=== PATIENT | male | born 1995 | race Caucasian/White ===

== ENCOUNTER 2016-10-20 12:19 | Emergency (ER) | payer SELFPAY ==
[2016-10-20] MEDS ORDERED: LIDOCAINE 1% INJ-PF (10 MG/ML) 30 ML SDV INJ ONE (14:00)
[2016-10-20] MEDS ORDERED: LIDOCAINE 4%/TETRACAINE 0.5%/EPI 0.18% 5 ML TOPICAL SOLN TOP ONE (14:00)
--- NOTE | 2016-10-20 14:16 | ER Document Report ---
HPI - HPI Patient complains to provider of: tile cut thumb Onset: Just prior to arrival Onset/Duration: Sudden Pain Level: 5 Context: 21 yo cut right thumb on broken floor tile. Tetanus not current. Associated Symptoms: None Exacerbated by: Denies Relieved by: Denies - ROS ROS below otherwise negative: Yes Systems Reviewed and Negative: Yes All other systems reviewed and negative - DERM Skin Color: Normal Past Medical History - General Information source: Patient - Social History Smoking Status: Current Every Day Smoker Frequency of alcohol use: None Drug Abuse: None Lives with: Spouse/Significant other Family History: Reviewed & Not Pertinent Patient has suicidal ideation: No Patient has homicidal ideation: No - Medical History Medical History: Negative Renal/ Medical History: Denies: Hx Peritoneal Dialysis Surgical Hx: Negative Vertical Provider Document - CONSTITUTIONAL Agree With Documented VS: Yes Exam Limitations: No Limitations General Appearance: No Apparent Distress - INFECTION CONTROL TRAVEL OUTSIDE OF THE [place] IN LAST 30 DAYS: No - HEENT HEENT: Normocephalic - NECK Neck: Supple - RESPIRATORY O2 Sat by Pulse Oximetry: 99 - MUSCULOSKELETAL/EXTREMETIES Musculoskeletal/Extremeties: MAEW, FROM, Tender - 1.5 cm right thumb reynoso aspect base cut - NEURO Level of Consciousness: Awake, Alert Motor/Sensory: No Motor Deficit, No Sensory Deficit - DERM Integumentary: Laceration - see above Course - Vital Signs Vital signs: Temp Pulse Resp BP Pulse Ox 98.3 F 71 16 134/83 H 99 10/20/16 12:57 10/20/16 12:57 10/20/16 12:57 10/20/16 12:57 10/20/16 12:57 Procedures - Laceration/Wound Repair Right Thumb Time completed: 14:47 Wound length (cm): 1.5 Wound's Depth, Shape: Superficial, Linear Laceration pre-procedure: Sterile drapes applied, Other - surgiscrub Anesthetic type: 1% Lidocaine Volume Anesthetic (mLs): 5 Wound explored: Foreign body removed - sliver of tile Wound Repaired With: Sutures Suture Size/Type: 4:0, Prolene Number of Sutures: 3 Layer Closure?: No Post-procedure NV exam normal: Yes Complications: No Discharge - Discharge Clinical Impression: thumb cut repair Condition: Good Disposition: HOME, SELF-CARE Instructions: Soap Cleansing ([facility]), Laceration Care ([facility]), Tetanus Immunization Given ([facility]), Use of Zdfo-Toy-Jgsbfsl Ibuprofen ([facility]) Additional Instructions: keep clean and dry sutures out in 9 days to er any concerns Please complete the patient satisfaction survey if you get one, and return it.. If you do not receive a survey, then you can go to the [facility] website, [email or web address] and place your comments about your very good care. Thank you very much. It was a pleasure being your medical provider today. Forms: Return to Work
[2016-10-20] MEDS ORDERED: DIPH/PERTUSS(ACELL)/TETANUS VAC/PF 0.5 ML SYR (>=10YO) IM ONE (14:45)
[2016-10-20 15:13] VITALS: BP 113/65
== END 2016-10-20 15:10 | disposition home or self-care (01) ==
LOC: ER 12:19
PROC: 0HQFXZZ Repair Right Hand Skin, External Approach (ICD-10-PCS; principal; 2016-10-20)
DX: S61.021A Laceration with foreign body of right thumb without damage to nail, initial encounter (principal); W45.8XXA Other foreign body or object entering through skin, initial encounter; Y93.89 Activity, other specified; F17.200 Nicotine dependence, unspecified, uncomplicated
CPT/HCPCS: 99282; 90715; 12001; J3490

== ENCOUNTER 2017-01-28 03:02 | Emergency (ER) | payer MEDICAID ==
--- NOTE | 2017-01-28 03:50 | RADIOLOGY REPORT (SQ) ---
EXAM DESCRIPTION: FINGER LEFT COMPLETED DATE/TIME: 01/28/2017 3:28 am REASON FOR STUDY: left thumb injury . Hit with sledgehammer. Pain at the interphalangeal joint. COMPARISON: None. NUMBER OF VIEWS: Three views. TECHNIQUE: AP view of the left hand and lateral, and oblique images acquired of the left thumb. LIMITATIONS: None. FINDINGS: MINERALIZATION: Normal. BONES: There is a nondisplaced fracture at the head of the 1st proximal phalanx. The fracture line e xtends into the interphalangeal joint. SOFT TISSUES: Mild soft tissue swelling overlying the fracture site. No radiopaque foreign body. IMPRESSION: Nondisplaced intra-articular fracture at the head of the 1st proximal phalanx with mild overlying soft tissue swelling. COMMENT: SITE OF TRAUMA/COMPLAINT MARKED/STAMP COMPLETED: YES. TECHNICAL DOCUMENTATION: JOB ID: [id number] 2010 [employer]- All Rights Reserved
[2017-01-28] MEDS ORDERED: ONDANSETRON 4 MG TAB.RAPDIS PO ONE (05:00)
[2017-01-28] MEDS ORDERED: OXYCODONE-ACETAMINOPHEN 5-325 MG TABLET PO ONE (05:00)
[2017-01-28] MEDS ORDERED: HYDROCODONE/ACETAMINOPHEN 5-325 MG 6 TAB/DSPK PO PRN (05:00)
--- NOTE | 2017-01-28 05:03 | ER Document Report ---
HPI - HPI Patient complains to provider of: left thumb injury Pain Level: 5 Context: Patient is a 21-year-old male who comes emergency department for chief complaint of left thumb injury. 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 He did not break the skin or have any bleeding. He denies any other injuries. - CARDIOVASCULAR Cardiovascular: DENIES: Chest pain Past Medical History - General Information source: Patient - Social History Smoking Status: Current Every Day Smoker Chew tobacco use (# tins/day): No Frequency of alcohol use: None Drug Abuse: None Lives with: Spouse/Significant other Family History: Reviewed & Not Pertinent - Medical History Medical History: Negative Renal/ Medical History: Denies: Hx Peritoneal Dialysis Surgical Hx: Negative - Immunizations Hx Diphtheria, Pertussis, Tetanus Vaccination: Yes Vertical Provider Document - CONSTITUTIONAL General Appearance: WD/WN, Mild Distress - Patient does appear to be in some pain, holding his left hand - INFECTION CONTROL TRAVEL OUTSIDE OF THE [place] IN LAST 30 DAYS: No - HEENT HEENT: Atraumatic, Normal ENT Exam, Normocephalic - RESPIRATORY Respiratory: Breath Sounds Normal, No Respiratory Distress O2 Sat by Pulse Oximetry: 98 - CARDIOVASCULAR Cardiovascular: Regular Rate, Regular Rhythm - GI/ABDOMEN Gastrointestinal: Abdomen Soft, Abdomen Non-Tender - BACK Back: Normal Inspection - MUSCULOSKELETAL/EXTREMETIES Musculoskeletal/Extremeties: Tender - Soft tissue swelling over the majority of the dorsal aspect of the left thumb, bruising over the joint of the DIP, no bleeding, no nail injury, sensation and capillary refill intact, normal hand and wrist exam otherwise Course - Re-evaluation Re-evalutation: Patient given protective splint of the thumb because of work, x-ray reviewed and shows nondisplaced fracture at the thumb. No other injuries noted. Discussed treatment of this, return precautions, patient states understanding and agreement - Vital Signs Vital signs: Temp Pulse Resp BP Pulse Ox 97.6 F 71 18 110/61 98 01/28/17 03:09 01/28/17 03:09 01/28/17 03:09 01/28/17 03:09 01/28/17 03:09 Procedures - Immobilization left thumb Immobilizer type: Finger protection Performed by: RN Post-Proc Neuro Vasc Exam: Normal Alignment checked and good: Yes Discharge - Discharge Clinical Impression: Fracture of thumb, left, closed Qualifiers: Encounter type: initial encounter Phalanx: proximal Fracture alignment: nondisplaced Qualified Code(s): S62.515A - Nondisplaced fracture of proximal phalanx of left thumb, initial encounter for closed fracture Condition: Stable Disposition: HOME, SELF-CARE Additional Instructions: There is a nondisplaced fracture of the bone in your thumb. Apply ice to the area, recommended 3-4 times a day for the first couple of days, take the pain medication if needed especially to help you sleep, take Tylenol or similar medication during the day. Try to rest the thumb to allow the swelling to reduce. This will likely take about 6 weeks to fully heal. Return to emergency department for any concerning or worsening symptoms including severe swelling or pain. Forms: Return to Work
[2017-01-28 05:17] VITALS: BP 119/61
== END 2017-01-28 05:17 | disposition home or self-care (01) ==
LOC: ER 03:02
DX: S62.515A Nondisplaced fracture of proximal phalanx of left thumb, initial encounter for closed fracture (principal); W27.8XXA Contact with other nonpowered hand tool, initial encounter; Y93.H3 Activity, building and construction; Y99.0 Civilian activity done for income or pay; F17.200 Nicotine dependence, unspecified, uncomplicated
CPT/HCPCS: 99283; 73140; S0119

== ENCOUNTER 2018-05-08 17:20 | Emergency (ER) | payer MEDICAID ==
[2018-05-08] MEDS ORDERED: CLINDAMYCIN 900 MG/D5W RTU 900 MG/50 ML RTUPB IV ONE (18:14)
[2018-05-08] MEDS ORDERED: MORPHINE SULFATE 10 MG/ML INJ IV ONE ×2 (18:15→22:14)
[2018-05-08] MEDS ORDERED: ONDANSETRON HCL INJ/PF 4 MG/2 ML SDV IV ONE (18:15)
[2018-05-08] MEDS ORDERED: LIDOCAINE 1% INJ-PF (10 MG/ML) 30 ML SDV INJ ONE (18:17)
[2018-05-08] MEDS ORDERED: LIDOCAINE 1% INJ (10 MG/ML) 10 ML MDV INJ ONE (18:17)
--- NOTE | 2018-05-08 18:36 | ER Document Report ---
ED General - General Chief Complaint: Abscess Stated Complaint: SWOLLEN FOREARM Time Seen by Provider: 05/08/18 18:08 Mode of Arrival: Ambulatory Information source: Patient, Relative Notes: Patient is a 23-year-old male comes to emergency room with complaint of an abscess and infection of the skin in the left elbow area. Patient states this started 2 days ago and is progressively gotten worse. He tells me that he attempted to use a needle and attempted to pop it twice himself without any success. At first he denied any break in the skin to have caused an infection however when confronted and asked if he by chance does IV drugs the answer yes and states that that could have come from there. He said that last time he used was 4 days ago. He denies fever but states that the arm is gotten much bigger than usual. TRAVEL OUTSIDE OF THE [place] IN LAST 30 DAYS: No - HPI Onset: Other - 4 days Onset/Duration: Gradual, Worse Quality of pain: Sharp, Throbbing Pain Level: 3 Associated symptoms: Chills, Nausea Exacerbated by: Movement Relieved by: Denies Similar symptoms previously: Yes Recently seen / treated by doctor: No - Related Data Allergies/Adverse Reactions: No Known Allergies Allergy (Verified 01/28/17 03:08) Past Medical History - General Information source: Patient - Social History Smoking Status: Current Every Day Smoker Cigarette use (# per day): Yes Smoking Education Provided: Yes Frequency of alcohol use: Occasional Drug Abuse: Other - IV drug Family History: Reviewed & Not Pertinent Patient has suicidal ideation: No Patient has homicidal ideation: No Renal/ Medical History: Denies: Hx Peritoneal Dialysis - Immunizations Hx Diphtheria, Pertussis, Tetanus Vaccination: Yes Review of Systems - Review of Systems Constitutional: No symptoms reported EENT: No symptoms reported Cardiovascular: No symptoms reported Respiratory: No symptoms reported Gastrointestinal: No symptoms reported Genitourinary: No symptoms reported Male Genitourinary: No symptoms reported Musculoskeletal: No symptoms reported Skin: Change in color, Lesions, Rash, Other - Abscess with cellulitis Hematologic/Lymphatic: No symptoms reported Neurological/Psychological: No symptoms reported -: Yes All other systems reviewed and negative Physical Exam - Vital signs Vitals: Temp Pulse Resp BP Pulse Ox 98.4 F 87 18 139/75 H 99 05/08/18 17:47 05/08/18 17:47 05/08/18 17:47 05/08/18 17:47 05/08/18 17:47 Interpretation: Hypertensive - Notes Notes: Patient is a well-nourished well-developed 23-year-old male who is in no apparent distress on physical examination. - General General appearance: Alert In distress: None - Respiratory Respiratory status: No respiratory distress Chest status: Nontender Breath sounds: Normal. No: Rales, Rhonchi, Stridor Chest palpation: Normal - Cardiovascular Rhythm: Regular Heart sounds: Normal auscultation Murmur: No - Abdominal Inspection: Normal Distension: No distension Bowel sounds: Normal Tenderness: Nontender Organomegaly: No organomegaly - Extremities General upper extremity: Tender, Edema, Other - Abscess with cellulitis left arm and antecubital. No: Normal inspection, Nontender, Normal color, Normal ROM , Normal strength, Normal temperature Elbow: Tender, Limited ROM, Other - Examination patient's left antecubital area shows an abscess that would be just at the distal portion of the humerus. At the top part of the band in the arm. It is very firm fluctuant tender to touch unable to assess how deep it is by palpation secondary to pain and swelling patient will allow me to feel very much. The cellulitis extends beyond that to about mid humeral area and down to about mid forearm. There is no lymphangitis that is seen at this time. She does have good pulses in the distal ulnar and radius has good cap refill in the nailbeds of the fingers. He also has a good brachial pulse. Size of the arm is 1 time to 1-1/2 times the size of normal. Difficult for him to do full extension finger to the swelling and the pain.. No : Normal, Nontender, Abrasion, Deformity, Dislocation, Ecchymosis, Joint effusion - Neurological Neuro grossly intact: Yes Cognition: Normal Orientation: AAOx4 [place] Coma Scale Eye Opening: Spontaneous [place] Coma Scale Verbal: Oriented Red Level Coma Scale Motor: Obeys Commands [place]ll Coma Scale Total: 15 Speech: Normal Course - Re-evaluation Re-evalutation: 05/08/18 22:01 I have elected to put an IV and patient because I felt that he was borderline high being at admission if his white count was elevated or his lactic acid. Lactic acid was 1.8 his white count was normal the swelling was pretty impressive to the antecubital area. The drainage we got out was probably about 30 cc of purulent white pus. I was able to express out all of the pus that I could possibly do and moderate amount of bleeding. The area is right in the antecubital it is to the lateral side of the of the bend in the elbow I was able to palpate the brachial artery more medially. Therefore I felt I was safe in putting a incision in that area. Never did get any kind of pulsatile blood return. Patient did not tolerate really well the amount of pain per him was beyond anything he is ever experienced. When actuality he was probably not that bad of an I&D that hurt that badly. Patient is an IV drug user and this is probably been festering for more than 2 days that he did inform me about. 05/08/18 22:12 Also in case on physical exam I did mention the size of the arm is 1-1 and half times its normal size. The induration on the antecubital it was substantial cassette at approximately 30 cc of purulent bloody white material out and I was able to pack about 4 inches of iodoform and to keep it open. I am sure that was a lot of discomfort involved. - Vital Signs Vital signs: Temp Pulse Resp BP Pulse Ox 98.4 F 87 18 139/75 H 99 05/08/18 17:47 05/08/18 17:47 05/08/18 17:47 05/08/18 17:47 05/08/18 17:47 - Laboratory Result Diagrams: 05/08/18 20:19 05/08/18 20:19 Laboratory results interpreted by me: 05/08/18 20:19 Hgb 12.4 L Hct 36.2 L RDW 16.1 H Procedures - Incision and Drainage Left Lateral Elbow Type: Complex Anesthetic type: 1% Lidocaine mL's of anesthetic: 8 Blade size: 11 I&D procedure: Betadine prep applied, Iodoform packing placed Incision Method: Incision made by scalpel Amount/type of drainage: 30 cc purulent white Notes: 05/08/18 22:06 Culture was sent nursing applied a dressing I applied approximately 4 inches of iodoform and taped down. Discharge - Discharge Clinical Impression: Abscess of left arm, Cellulitis of left arm Condition: Stable Disposition: HOME, SELF-CARE Instructions: Cephalexin ([facility]), Post Incision and Drainage, Abscess ([facility]), Clindamycin ([facility]) Additional Instructions: Home and rest. Medication as prescribed and take all of the antibiotics. I have packed some string and there to keep it open and draining. I want you to return in 48 hours for me to recheck it. 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 You may see anyone you wish to I would just know how it looked to start with. If for any reason it looks worse or the pain increases or you spike a fever come back sooner. Change the dressing at least twice a day. Use warm moist compresses 3 times a day. This is something as simple as a towel with as warm water she can stand it from the sink do not stick it in the microwave. Then it cools down reheated up let it cool down again and do one more time that is considered 1 round done. Again should you have any concerns or problems if he does not appear to be healing the way you think it should be come back sooner and let us take a look at it. Prescriptions: Cephalexin Monohydrate [Keflex 500 mg Capsule] 500 mg PO Q6H 7 Days #28 capsule Clindamycin HCl 300 mg PO QID #40 capsule Hydrocodone/Acetaminophen [[place] 7.5-325 mg Tablet] 1 tab PO Q6 #12 tablet Forms: Elevated Blood Pressure, Smoking Cessation Education
--- NOTE | 2018-05-08 20:03 | RADIOLOGY REPORT (SQ) ---
EXAM DESCRIPTION: ELBOW LEFT AP/LATERAL COMPLETED DATE/TIME: 05/08/2018 7:50 pm REASON FOR STUDY: ? osteo IV drug abuse COMPARISON: None. NUMBER OF VIEWS: Four views. TECHNIQUE: AP, lateral, and both oblique radiographic images acquired of the left elbow. LIMITATIONS: None. FINDINGS: MINERALIZATION: Normal. BONES: No acute fracture or dislocation. No worrisome bone lesions. JOINT: No effusion. SOFT TISSUES: No soft tissue swelling. No foreign body. OTHER: No other significant finding. IMPRESSION: NEGATIVE STUDY OF THE LEFT ELBOW. NO RADIOGRAPHIC EVIDENCE OF ACUTE INJURY. TECHNICAL DOCUMENTATION: JOB ID: [id number] [employer]- All Rights Reserved Reading location - IP/workstation name: [email or web address]
[2018-05-08 20:35] LABS: ABSOLUTE EOSINOPHILS # (AUTO) 0.1 10^3/uL (0.0-0.6); ABSOLUTE LYMPHOCYTES (AUTO) 1.7 10^3/uL (0.5-4.7); ABSOLUTE MONOCYTES (AUTO) 0.6 10^3/uL (0.1-1.4); ABSOLUTE NEUT (AUTO) 7.1 10^3/uL (1.7-8.2); BASOPHILS % (AUTO) 0.4 % (0-2); EOSINOPHILS % (AUTO) 0.9 % (0-6); HEMATOCRIT 36.2 % (37.9-51.0); HEMOGLOBIN 12.4 g/dL (13.5-17.0); LYMPHOCYTES % (AUTO) 17.8 % (13-45); MEAN CORPUSCULAR HEMOGLOBIN 28.3 pg (27.0-33.4); MEAN CORPUSCULAR HGB CONC 34.2 g/dL (32.0-36.0); MEAN CORPUSCULAR VOLUME 83 fl (80-97); MONOCYTES % (AUTO) 6.6 % (3-13); PLATELET COUNT 273 10^3/uL (150-450); RED BLOOD COUNT 4.38 10^6/uL (4.35-5.55); RED CELL DISTRIBUTION WIDTH 16.1 % (11.5-14.0); SEGMENTED NEUTROPHILS % (AUTO) 74.3 % (42-78); TOTAL CELLS COUNTED % (AUTO) 100 %; WHITE BLOOD COUNT 9.6 10^3/uL (4.0-10.5)
[2018-05-08 20:51] LABS: ANION GAP 10 (5-19); BLOOD UREA NITROGEN 13 mg/dL (7-20); CALCIUM 8.9 mg/dL (8.4-10.2); CARBON DIOXIDE 27 mmol/L (22-30); CHLORIDE 101 mmol/L (98-107); GLUCOSE 95 mg/dL (75-110); POTASSIUM 3.8 mmol/L (3.6-5.0); SODIUM 138.3 mmol/L (137-145)
[2018-05-08 22:37] VITALS: BP 125/59
[2018-05-08] MEDS ORDERED: ACETAMINOPHEN 325 MG TABLET PO ONE (22:40)
== END 2018-05-08 23:35 | disposition home or self-care (01) ==
LOC: ER 17:20
PROC: 0H9EXZZ Drainage of Left Lower Arm Skin, External Approach (ICD-10-PCS; principal; 2018-05-08)
DX: L02.414 Cutaneous abscess of left upper limb (principal); L03.114 Cellulitis of left upper limb; F17.210 Nicotine dependence, cigarettes, uncomplicated
CPT/HCPCS: 96376; 99284; 96375; 96365; 36415; 87040; 87070; 87205; 85025; 87075; 87077; 80048; 87186; 83605; 73070; 10060; A6266; J3490 ×2; J2270; J2405

== ENCOUNTER 2018-05-09 18:01 | Emergency (ER) | payer MEDICAID ==
[2018-05-09] MEDS ORDERED: CLINDAMYCIN HCL 150 MG CAPSULE PO ONE (19:26)
[2018-05-09] MEDS ORDERED: CEPHALEXIN 500 MG CAPSULE PO ONE (19:26)
--- NOTE | 2018-05-09 19:32 | ER Document Report ---
ED General - General Chief Complaint: Wound Recheck Stated Complaint: ARM PAIN Time Seen by Provider: 05/09/18 19:24 Mode of Arrival: Ambulatory Information source: Patient Notes: Patient is a 23-year-old male comes back to the emergency room after being seen last night for recheck of his wound on his left forearm and antecubital area. Patient states he is back tonight because he wanted to make sure it was okay and because he was unable to fulfill his antibiotics from yesterday evening. He states that he went to [facility] and they want a $74 for it he did not have the money for it. I reminded him that I had given him a card for good Rx but he states that he did not get it. He wanted the reassurance that the wound looked okay today and that nothing else needed to be done. TRAVEL OUTSIDE OF THE [place] IN LAST 30 DAYS: No - HPI Onset: Yesterday Onset/Duration: Gradual, Persistent, Worse Quality of pain: Burning, Fullness, Pressure, Stabbing, Throbbing Severity: Moderate Pain Level: 3 Associated symptoms: None Exacerbated by: Denies Relieved by: Denies Similar symptoms previously: Yes Recently seen / treated by doctor: Yes - Related Data Allergies/Adverse Reactions: No Known Allergies Allergy (Verified 01/28/17 03:08) Past Medical History - General Information source: Patient - Social History Smoking Status: Current Every Day Smoker Cigarette use (# per day): Yes Chew tobacco use (# tins/day): No Smoking Education Provided: Yes Frequency of alcohol use: Occasional Drug Abuse: None, Heroin, Methamphetamine Lives with: Friend Family History: Reviewed & Not Pertinent Patient has suicidal ideation: No Patient has homicidal ideation: No Renal/ Medical History: Denies: Hx Peritoneal Dialysis - Immunizations Hx Diphtheria, Pertussis, Tetanus Vaccination: Yes Review of Systems - Review of Systems Constitutional: Fever, Weakness EENT: No symptoms reported, Ear pain Cardiovascular: No symptoms reported Respiratory: No symptoms reported Gastrointestinal: No symptoms reported Genitourinary: No symptoms reported Male Genitourinary: No symptoms reported Musculoskeletal: Muscle pain Hematologic/Lymphatic: No symptoms reported Neurological/Psychological: No symptoms reported. denies: Suicidal ideation -: Yes All other systems reviewed and negative Physical Exam - Vital signs Vitals: Temp Pulse Resp BP Pulse Ox 97.6 F 78 16 119/72 100 05/09/18 18:09 10/21/18 18:09 05/09/18 18:09 05/09/18 18:09 05/09/18 18:09 Interpretation: Normal - Notes Notes: Well-nourished well-developed 23-year-old male in no apparent distress on physical exam actually looks much better than yesterday. - General General appearance: Appears well, Alert In distress: None - HEENT Head: Normocephalic, Atraumatic Eyes: Normal - Respiratory Respiratory status: No respiratory distress Chest status: Nontender Breath sounds: Normal Chest palpation: Normal - Cardiovascular Rhythm: Regular Heart sounds: Normal auscultation Murmur: No - Abdominal Inspection: Normal Distension: No distension Bowel sounds: Normal Organomegaly: No organomegaly - Extremities General upper extremity: Tender, Edema. No: Nontender, Normal color, Normal ROM , Normal strength, Normal temperature General lower extremity: Normal inspection, Nontender, Normal ROM, Normal strength Forearm: Tender, Other - Reexamination patient's left forearm antecubital area shows much improvement\much improvement from yesterday. It is still draining some bloody discharge but the color of the and the size of the arm has significantly decreased. Still some warmth to touch in the area and still the iodoform is allowing it to drain. 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 But again the color and the size of the arm is significantly reduced he has good flexion in it now without having severe pain. Still has good cap refill in the nailbeds of the left hand.. No: Normal , Nontender, Abrasion, Deformity, Ecchymosis, Instability, Laceration - Skin Skin Temperature: Warm Skin Moisture: Dry Skin Color: Normal, [place], Other - See forearm above Course - Re-evaluation Re-evalutation: 05/09/18 19:35 As stated patient is doing exceptionally well compared to 24 hours ago. I am giving him a dose of antibiotics here. I have given you in the car personally and explained this to him now. My boss is even found a better way to get the medications reviewed Rx so he is got that up as well and can go to [facility] for 27 hours and get the clindamycin as we does not that he needed. Patient agrees that he can get he can afford that. - Vital Signs Vital signs: Temp Pulse Resp BP Pulse Ox 97.6 F 78 16 119/72 100 05/09/18 18:09 05/09/18 18:09 05/09/18 18:09 05/09/18 18:09 05/09/18 18:09 Discharge - Discharge Clinical Impression: Abscess of left forearm, Abscess of left arm, Cellulitis of left arm Condition: Poor Disposition: HOME, SELF-CARE Instructions: Abscess ([facility]), Cephalexin ([facility]), MRSA Cellulitis ([facility]), Oral Narcotic Medication ([facility]) Additional Instructions: As I indicated to you still want to see back tomorrow so I can remove the packing. Too early right now to take it out. 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 I want to see you tomorrow afternoon so I can remove the hopefully remove the packing. Again should you spike a fever or if you get increased swelling return to ER for recheck. Forms: Smoking Cessation Education
[2018-05-09] MEDS ORDERED: ACETAMINOPHEN 325 MG TABLET PO ONE (19:51)
[2018-05-09 19:57] VITALS: BP 102/55
== END 2018-05-09 19:57 | disposition home or self-care (01) ==
LOC: ER 18:01
DX: L02.414 Cutaneous abscess of left upper limb (principal); L03.114 Cellulitis of left upper limb; M79.602 Pain in left arm; F17.210 Nicotine dependence, cigarettes, uncomplicated
CPT/HCPCS: 99283; J3490 ×2

== ENCOUNTER 2018-05-10 19:14 | Emergency (ER) | payer MEDICAID ==
--- NOTE | 2018-05-10 21:16 | ER Document Report ---
ED General - General Chief Complaint: Wound Recheck Stated Complaint: LEFT ARM WOUND CHECK Time Seen by Provider: 05/10/18 20:55 Mode of Arrival: Ambulatory Information source: Patient Notes: Patient is a 23-year-old male who returns to the emergency room for a check of his left antecubital abscess. I originally saw patient on Thursday night where I did the I&D patient came back last night for recheck and tonight he comes back for me to recheck and pull the iodoform. He states it is been taken his antibiotics. Last night he had not gotten any antibiotics because it was too expensive so he came back here and I gave him his evening dose and he tells me he is purchased the rest of the antibiotics this morning. TRAVEL OUTSIDE OF THE [place] IN LAST 30 DAYS: No - HPI Onset: Last week Onset/Duration: Sudden Quality of pain: No pain Severity: None Pain Level: Denies Context: Patient had an abscess left antecubital from IV drug injection. Associated symptoms: None Exacerbated by: Denies Relieved by: Other - Antibiotics Similar symptoms previously: Yes Recently seen / treated by doctor: No - Related Data Allergies/Adverse Reactions: No Known Allergies Allergy (Verified 05/10/18 19:17) Past Medical History - General Information source: Patient - Social History Smoking Status: Current Every Day Smoker Cigarette use (# per day): Yes Chew tobacco use (# tins/day): No Smoking Education Provided: Yes Frequency of alcohol use: Occasional Drug Abuse: Heroin, Methamphetamine Family History: Reviewed & Not Pertinent Renal/ Medical History: Denies: Hx Peritoneal Dialysis - Immunizations Hx Diphtheria, Pertussis, Tetanus Vaccination: Yes Review of Systems - Review of Systems Constitutional: No symptoms reported EENT: No symptoms reported Cardiovascular: No symptoms reported Respiratory: No symptoms reported Gastrointestinal: No symptoms reported Genitourinary: No symptoms reported Male Genitourinary: No symptoms reported Musculoskeletal: No symptoms reported Skin: No symptoms reported, See HPI, Lesions Hematologic/Lymphatic: No symptoms reported Neurological/Psychological: No symptoms reported -: Yes All other systems reviewed and negative Physical Exam - Vital signs Vitals: Temp Pulse Resp BP Pulse Ox 97.8 F 72 18 126/73 H 98 05/10/18 19:21 05/10/18 19:21 05/10/18 19:21 05/10/18 19:21 05/10/18 19:21 Interpretation: Normal - Notes Notes: PHYSICAL EXAMINATION: GENERAL: Well-appearing, well-nourished and in no acute distress. HEAD: Atraumatic, normocephalic. EYES: Pupils equal round and reactive to light, extraocular movements intact, sclera anicteric, conjunctiva are normal. ENT: Nares patent, oropharynx clear without exudates. Moist mucous membranes. NECK: Normal range of motion, supple without lymphadenopathy LUNGS: Breath sounds clear to auscultation bilaterally and equal. No wheezes rales or rhonchi. HEART: Regular rate and rhythm without murmurs ABDOMEN: Soft, nontender, nondistended abdomen. No guarding, no rebound. No masses appreciated. Musculoskeletal: Normal range of motion, no pitting or edema. No cyanosis. NEUROLOGICAL: Cranial nerves grossly intact. Normal speech, normal gait. Normal sensory, motor exams PSYCH: Normal mood, normal affect. SKIN: Examination of patient's left forearm shows that the enormous amount of edema that was apparent and on the arm 2 nights ago is now gone. Patient is got back his normal color skin. He has good skin turgor now. I removed the iodoform approximately 4-1/2 inches without patient even knowing I pulled it. I then expressed out may be 2 mL's of bloody serous fluid and then was unable to express anything else. At this point I do not believe repacking is needed. I am having nursing put a dressing on the wound patient is going to go home and continue with all the medications including the cleansed and the Keflex and will follow-up as needed. There are no other abnormalities I can find is got good embedded nurse strength in color of his skin does not return to his normal. Course - Re-evaluation Re-evalutation: 05/10/18 21:16 Patient has progressed rather well with the 3 days of antibiotics. He is regained his use of his arm without any discomfort or pain he has normal color and I have told the iodoform and I do not believe it is repacking. Patient feels so much better now. He informs me he will take all the antibiotics he will try to stop abusing drugs IV at least and he will come back to ER only as needed. - Vital Signs Vital signs: Temp Pulse Resp BP Pulse Ox 97.8 F 72 18 126/73 H 98 05/10/18 19:21 05/10/18 19:21 05/10/18 19:21 05/10/18 19:21 05/10/18 19:21 Discharge - Discharge Clinical Impression: Abscess of left forearm Condition: Stable Disposition: HOME, SELF-CARE Instructions: Abscess ([facility]), Cephalexin ([facility]) Additional Instructions: Home and continue your medications until gone. Make sure you take all of the antibiotics. Use warm compresses we have discussed in the must be moist compresses. Should you have any concerns or problems or if it appears that the wounds not healing appropriately return to ER for recheck. Forms: Smoking Cessation Education
[2018-05-10 21:42] VITALS: BP 114/94
== END 2018-05-10 21:42 | disposition home or self-care (01) ==
LOC: ER 19:14
DX: L02.414 Cutaneous abscess of left upper limb (principal); F17.210 Nicotine dependence, cigarettes, uncomplicated
CPT/HCPCS: 99282